=== PATIENT | female | born 1980 | race American Indian/Alaskan Native ===

== ENCOUNTER 2018-01-17 09:39 | Emergency (ER) | payer OTHER ==
[2018-01-17 10:04] VITALS: RESP 18
--- NOTE | 2018-01-17 10:29 | C.PDOC ---
History Of Present Illness 38 y/o female presents to the ED complaining of a sore throat, subjective fever, headache, and generalized bodyaches since Monday. No known sick contacts. No recent travel. Patient denies any chest pain, difficulty breathing, nausea, vomiting, or other associated symptoms. Time Seen by Provider: 01/17/18 10:10 Chief Complaint (Nursing): Flu-like Symptoms History Per: Patient History/Exam Limitations: no limitations Onset/Duration Of Symptoms: Days (x3) Current Symptoms Are (Timing): Still Present Location Of Pain: Throat, Diffuse Myalgias Sick Contacts (Context): None Past Medical History Reviewed: Historical Data, Nursing Documentation, Vital Signs Vital Signs: Last Vital Signs Temp 99.6 F 01/17/18 09:59 Pulse 85 01/17/18 09:59 Resp 18 01/17/18 09:59 BP 138/84 01/17/18 09:59 Pulse Ox 97 01/17/18 09:59 - Medical History PMH: No Chronic Diseases Surgical History: Family History: States: Unknown Family Hx - Social History Hx Tobacco Use: No Hx Alcohol Use: No Hx Substance Use: No - Immunization History Hx Tetanus Toxoid Vaccination: No Hx Influenza Vaccination: No Hx Pneumococcal Vaccination: No Review Of Systems Except As Marked, All Systems Reviewed And Found Negative. Constitutional: Positive for: Fever, Other (Diffuse bodyaches) ENT: Positive for: Throat Pain Cardiovascular: Negative for: Chest Pain Respiratory: Positive for: Cough. Negative for: Shortness of Breath, Wheezing Gastrointestinal: Negative for: Nausea, Vomiting, Diarrhea Neurological: Positive for: Headache. Negative for: Dizziness Physical Exam - Physical Exam Appears: Non-toxic, No Acute Distress Skin: Normal Color, Warm, Dry Head: Atraumatic, Normacephalic Eye(s): bilateral: Normal Inspection, PERRL, EOMI Oral Mucosa: Moist Throat: No Drooling, Other (b/l pharyngeal erythema with exudates, non-kissing, uvula is midline) Neck: Normal ROM, Supple Lymphatic: Other (Bilateral palpable submandibular nodes, TTP) Chest: Symmetrical Cardiovascular: Rhythm Regular, No Murmur Respiratory: Normal Breath Sounds, No Accessory Muscle Use, No Rhonchi, No Stridor, No Wheezing Extremity: Bilateral: Atraumatic, Normal Color And Temperature, Normal ROM Pulses: Left Radial: Normal, Right Radial: Normal Neurological/Psych: Oriented x3, Normal Speech ED Course And Treatment O2 Sat by Pulse Oximetry: 97 (RA) Pulse Ox Interpretation: Normal Medical Decision Making Medical Decision Making: Impression: Pharyngitis Initial Plan: --Amoxicillin 500 mg PO --Decadron 12 mg PO --Toradol 60 mg IM --Tylenol 975 mg PO Patient remains AAOx3, afebrile, in no acute distress. Counseled regarding diagnosis and course of discharge. Patient is agreeable to plan, advised to follow up with PMD. Disposition Counseled Patient/Family Regarding: Diagnosis, Need For Followup, Rx Given - Disposition Referrals: [facility] [Outside] [facility] [Outside] Disposition: HOME/ ROUTINE Disposition Time: 10:26 Condition: IMPROVED Prescriptions: Acetaminophen [Tylenol Extra Strength] 2 tab PO Q6 #30 tablet Amoxicillin [Amoxil 500 mg Cap] 500 mg PO BID #19 cap Ibuprofen [Motrin] 600 mg PO Q6 #30 tab Instructions: Strep Throat (DC) Forms: [facility] (K[place]akh), Work Excuse - Clinical Impression Clinical Impression: Acute pharyngitis - Scribe Statement The provider has reviewed the documentation as recorded by the Sharath Valero Provider Attestation: All medical record entries made by the Sharath were at my direction and personally dictated by me. I have reviewed the chart and agree that the record accurately reflects my personal performance of the history, physical exam, medical decision making, and the department course for this patient. I have also personally directed, reviewed, and agree with the discharge instructions and disposition.
[2018-01-17 10:58] VITALS: TEMP 98.5
[2018-01-17 11:16] VITALS: BP 128/76; PULSE 87; O2SAT 98
== END 2018-01-17 11:16 | disposition home or self-care (01) ==
LOC: C.ER 09:39
DX: J02.9 Acute pharyngitis, unspecified (principal)
CPT/HCPCS: 96372; 99283; J1885; J8540